=== PATIENT | female | born 1945 | race Caucasian/White ===

== ENCOUNTER 2021-11-11 10:29 | Outpatient (CLI) | payer MEDICARE, BC ==
[~2021-11-11 10:29] MED LIST: LOSA50TA39 PO; METF-440 PO; METF-442 PO; VIT C PO; VIT D3 PO; [UNRECOGNIZED DRUG - CODE] SQ
== END 2021-11-11 23:59 | disposition home or self-care (01) ==
LOC: RAD 10:29
PROVIDERS: ATTEND Internal Medicine Pulmonary Disease
DX: I70.0 Atherosclerosis of aorta (principal); R06.02 Shortness of breath
CPT/HCPCS: 71045-TC

== ENCOUNTER 2021-11-25 11:34 | Outpatient (CLI) | payer MEDICARE, BC ==
[2021-11-28 09:07] LABS: *AREA 13 IGE,TOTAL 14 IU/mL (6-495)
== END 2021-11-25 23:59 | disposition home or self-care (01) ==
LOC: LAB 11:34
PROVIDERS: ATTEND Internal Medicine Pulmonary Disease
DX: J45.909 Unspecified asthma, uncomplicated (principal); J32.9 Chronic sinusitis, unspecified
CPT/HCPCS: 70220-TC; 82785

== ENCOUNTER 2022-04-02 10:55 | Inpatient (IN) | payer MEDICARE, BC ==
[~2022-04-02] VITALS: Ht 162.6 cm; Wt 75.7 kg
[2022-04-02] MEDS ORDERED: PANTOPRAZOLE 40 MG VIAL ONE (11:08)
--- NOTE | 2022-04-02 11:20 | NUR ---
DR PARIS AT BEDSIDE FOR EVAL
[2022-04-02] MEDS ORDERED: PANTOPRAZOLE 40 MG VIAL IV ONE (11:30)
[2022-04-02] MEDS ORDERED: IV NS 0.9% 1,000 ML BAG IV ONE (11:30)
--- NOTE | 2022-04-02 11:30 | NUR ---
TATTOO TECHNICIAN AT BEDSIDE FOR XRAY
--- NOTE | 2022-04-02 11:40 | NUR ---
IV LINE ESTABLISHED ON RFA #20, BLOOD DRAWN AND SENT TO LAB
[2022-04-02 11:57] LABS: BASOPHILS # (AUTO) 0.1 K/uL (0.0-0.2); BASOPHILS % (AUTO) 0.6 % (0.0-2.0); EOSINOPHILS % (AUTO) 0.7 % (0.0-6.0); HEMATOCRIT 24 % (33-45); HEMOGLOBIN 7.9 g/dL (11.5-14.8); LYMPHOCYTES % (AUTO) 11.6 % (20.0-44.0); MEAN CORPUSCULAR HGB CONC 33 g/dl (31.0-36.0); MEAN CORPUSCULAR VOLUME 87 fL (82-100); MONOCYTES # (AUTO) 0.3 K/uL (0.1-1.30); MONOCYTES % (AUTO) 3.9 % (2.0-12.0); NEUTROPHILS # (AUTO) 7.4 K/uL (1.8-8.9); NEUTROPHILS % (AUTO) 83.2 % (43.0-81.0); PLATELET COUNT (AUTO) 197 K/uL (150-450); RED BLOOD CELL COUNT(AUTO) 2.76 MIL/uL (4.0-5.2); WHITE BLOOD COUNT (AUTO) 8.9 K/uL (4.3-11.0)
[2022-04-02 12:11] LABS: CARBON DIOXIDE 26 mmol/L (21-32); CHLORIDE 103 mmol/L (98-107); CREATININE 1.1 mg/dL (0.6-1.3); GLUCOSE 177 mg/dL (74-106); POTASSIUM 4.5 mmol/L (3.5-5.1); SODIUM SERUM 138 mmol/L (136-145); UREA NITROGEN, BLOOD 27 mg/dL (7-18)
[2022-04-02 12:18] LABS: ALANINE AMINOTRANSFERASE 22 U/L (12-78); ALBUMIN 3.5 g/dL (3.4-5.0); ALKALINE PHOSPHATASE 65 U/L (46-116); ASPARTATE AMINOTRANSFERASE 29 U/L (15-37); BILIRUBIN,DIRECT 0.2 mg/dL (0.0-0.2); BILIRUBIN,TOTAL 0.5 mg/dL (0.2-1.0); LIPASE 106 U/L (73-393); TOTAL PROTEIN, SERUM 7.3 g/dL (6.4-8.2)
[2022-04-02] MEDS ORDERED: IOHEXOL-350 100 ML VIAL IV ONE (12:34)
[2022-04-02] MEDS ORDERED: IV NS 0.9% 250 ML IV ONE (12:34)
--- NOTE | 2022-04-02 12:37 | NUR ---
PT TAKEN TO RADIOLOGY FOR CT
--- NOTE | 2022-04-02 12:48 | NUR ---
PT RETURNED FROM RADIOLOGY
--- NOTE | 2022-04-02 13:16 | NUR ---
[facility] CALLED INSTALLATIONS INSPECTOR PAGED.
--- NOTE | 2022-04-02 13:32 | NUR ---
COVID SWAB COLLECTED AND SENT TO LAB
[2022-04-02] MEDS ORDERED: OLME20TA23 PO (13:55)
[2022-04-02] MEDS ORDERED: ASPI-1420 PO (13:55)
[2022-04-02] MEDS ORDERED: ALBU18HF2 IH (13:55)
[2022-04-02] MEDS ORDERED: ATOR40TA PO (13:55)
[2022-04-02] MEDS ORDERED: MAG HYDROX/AL HYDROX/SIMETH 30 ML UDC PO PRN (14:30)
[2022-04-02] MEDS ORDERED: IV NS 0.9% 1,000 ML IV PRN (14:30)
[2022-04-02] MEDS ORDERED: ONDANSETRON HCL/PF 4 MG/2 ML VIAL IVP PRN (14:30)
[2022-04-02] MEDS ORDERED: ACETAMINOPHEN 325 MG TABLET PO PRN (14:30)
[2022-04-02] MEDS ORDERED: MAGNESIUM HYDROXIDE 30 ML UDC PO PRN (14:30)
[2022-04-02] MEDS ORDERED: Z GUARD REMEDY 4 OZ OINT TP PRN (14:30)
--- NOTE | 2022-04-02 14:37 | NUR ---
ROOM 103.
--- NOTE | 2022-04-02 14:46 | NUR ---
DORA AGUIRRE ASSIGNED, WILL CALL BACK FOR REPORT
--- NOTE | 2022-04-02 14:54 | NUR ---
REPORT GIVEN TO CARLA JOHN FOR SELAM
--- NOTE | 2022-04-02 15:46 | NUR ---
PT TRANSFERRED TO 103 VIA CORRINE GUILLERMO PROTOCOL. WARM HANDOFF GIVEN TO DORA AGUIRRE.
--- NOTE | 2022-04-02 15:50 | NUR ---
RN OPENING NOTES RECEIVED PATIENT FROM ER. ON ROOM AIR WITH NO SIGNS OF DISTRESS. ALERT AND ORIENTED TIMES 4. ATTACHED TO TELE MONITOR READING NORMAL SINUS RYTHYM. SKIN INTACT. IV ACCESS ON RIGHT FOREARM 20 GAUGE. SAFETY MEASURES IMPLEMENTED. WILL CONTINUE PLAN OF CARE AND ANTICIPATE NEEDS.
[2022-04-02 16:00] VITALS: BP 125/65
--- NOTE | 2022-04-02 19:00 | NUR ---
RN CLOSING NOTES PATIENT REMAINS IN ROOM. ON ROOM AIR WITH NO SIGNS OF DISTRESS. ALERT AND ORIENTED TIMES 4. ATTACHED TO TELE MONITOR READING NORMAL SINUS RYTHYM. SKIN INTACT. IV ACCESS ON RIGHT FOREARM 20 GAUGE. SAFETY MEASURES IMPLEMENTED. WILL ENDORSE TO NIGHTSHIFT FOR CONTINUATION OF CARE.
[2022-04-02] MEDS ORDERED: ANESTHESIA TRAY IN PYXIS 1 EA TRAY MC ONE (19:19)
--- NOTE | 2022-04-02 19:27 | NUR ---
RN NOTE PATIENT TAKEN TO EGD.
--- NOTE | 2022-04-02 20:04 | NUR ---
RN/PACU-RECEIVED PT. FROM GI LAB S/P EGD W/ DIAGNOSIS ANEMIA,MILD ESOPHAGITIS, PT. ACCOMPANIED BY ANESTHESIA DR. JOHNSON AND OR CREW. PT. AWAKE, ALERT, ORIENTEDX4, EXPRESSIVE OF NEEDS, BREATHING COMES EASY, ON 2L NC, SATS.-100%, EKG SR W/ OCCASIONAL UNIFOCAL PVC, W/ HR-78, BP-125/66, DENIES PAIN OR DISCOMFORT. ANTONIO SCORE 10/10. AFEBRILE TEMPT-98.4/0. WILL CONTINUE TO MONITOR CLOSELY PER PROTOCOL.
[2022-04-02 20:05] VITALS: BP 125/66
--- NOTE | 2022-04-02 20:15 | NUR ---
RN/PACU-PT. ON REGULAR DIET, ASKING FOR JUICE. I CUP OF MILK SERVED, TOLERATED WELL.
[2022-04-02 20:27] VITALS: BP 120/58
[2022-04-02 20:30] VITALS: BP 107/54
--- NOTE | 2022-04-02 20:38 | NUR ---
RN/PACU-PT. REMAINS STABLE. TRANSFERRED TO ROOM 103 PER PROTOCOL BY BED. BEDSIDE REPORT GIVEN TO DORA GRIER. PT. DESIROUS TO GO HOME, FAMILY MEMBER AT BEDSIDE.
[2022-04-02] MEDS: SUCRALFATE 1 G/10 ML UDC GT SCH (21:06)
[2022-04-03] VITALS (7 sets, daily range): BP systolic 101–127; BP diastolic 39–68
[2022-04-03 06:33] LABS: BASOPHILS % (AUTO) 0.7 % (0.0-2.0); EOSINOPHILS % (AUTO) 2.8 % (0.0-6.0); HEMATOCRIT 21 % (33-45); HEMOGLOBIN 7.1 g/dL (11.5-14.8); LYMPHOCYTES # (AUTO) 1.4 K/uL (0.8-4.8); LYMPHOCYTES % (AUTO) 23.6 % (20.0-44.0); MEAN CORPUSCULAR HGB CONC 33 g/dl (31.0-36.0); MEAN CORPUSCULAR VOLUME 87 fL (82-100); MONOCYTES # (AUTO) 0.4 K/uL (0.1-1.30); MONOCYTES % (AUTO) 6.2 % (2.0-12.0); NEUTROPHILS # (AUTO) 3.9 K/uL (1.8-8.9); NEUTROPHILS % (AUTO) 66.7 % (43.0-81.0); PLATELET COUNT (AUTO) 171 K/uL (150-450); RED BLOOD CELL COUNT(AUTO) 2.45 MIL/uL (4.0-5.2); WHITE BLOOD COUNT (AUTO) 5.9 K/uL (4.3-11.0)
[2022-04-03 07:14] LABS: CALCIUM, SERUM 8.5 mg/dL (8.5-10.1); PHOSPHORUS 3.8 mg/dL (2.5-4.9); POTASSIUM 4.3 mmol/L (3.5-5.1)
--- NOTE | 2022-04-03 07:20 | NUR ---
RN CLOSING NOTE PATIENT RETURNED FROM EGD. CARAFATE GIVEN ORDERED. PATIENT EDUCATED. DAUGHTER AND AT BEDSIDE. PROVIDED WITH GI MD OFFICE NUMBER FOR FURTHER QUESTIONS. A/OX4. ROOM AIR. SINUS RHYTHM ON THE MONITOR. NO C/O PAIN. NO S/S BLEEDING. RFA NS@75. POSSIBLE DC THIS AM.
--- NOTE | 2022-04-03 07:25 | NUR ---
RN OPENING NOTE PATIENT IN BED RESTING. A/OX4. ROOM AIR. SINUS RHYTHM ON THE MONITOR. NO C/O PAIN. NO S/S BLEEDING. RFA NS@75. POSSIBLE DC THIS AM. SAFETY MEASURES IMPLEMENTED, WILL CONTINUE PLAN OF CARE AND ANTICIPATE NEEDS.
[2022-04-03] MEDS: SUCRALFATE 1 G/10 ML UDC GT SCH ×2 (08:03→11:42)
[2022-04-03] MEDS ORDERED: PANTOPRAZOLE 40 MG VIAL IV SCH (09:00)
[2022-04-03] MEDS ORDERED: SUCR1TAB31 PO (11:21)
[2022-04-03] MEDS ORDERED: OMEP40CA21 PO (11:21)
[2022-04-03 13:15] LABS: LYMPHOCYTES % (MANUAL) 17 % (16-48); MONOCYTES % (MANUAL) 4 % (0-11.0); NEUTROPHILS % (MANUAL) 79 (42-76)
--- NOTE | 2022-04-03 15:23 | NUR ---
BLOOD TRANSFUSION HAS CONCLUDED. VITAL SIGNS POST TRANSFUSION ARE FOLLOWS BLOOD PRESSURE: 134/47 SPO2: 97% PULSE 90 BEATS PER MINUTE TEMPERATURE 98.9 RESPIRATORY RATE 18 BREATHS PER MINUTE NO COMPLAINTS OF PAIN.
--- NOTE | 2022-04-03 15:59 | NUR ---
PATIENT HAS BEEN DISCHARGED HOME. DISCHARGE INSTRUCTIONS AND BELONGINGS LIST SIGNED. PATIENT VERBALIZED UNDERSTANDING OF DISCHARGE TEACHING. ID BAND REMOVED AND IV ACCESS DISCONTINUED. PATIENT WAS WHEELED TO FRONT LOBBY WHERE SHE WAS PICKED UP BY HER FAMILY MEMBER. PATIENT LEFT FACILITY VIA PRIVATE VEHICLE IN STABLE CONDITION.
== END 2022-04-03 16:03 | disposition home or self-care (01) | DRG 368 ==
LOC: ER 10:58 → TELE1 14:54
PROVIDERS: ADMIT Internal Medicine; ATTEND Internal Medicine
PROC: 0DB68ZX Excision of Stomach, Via Natural or Artificial Opening Endoscopic, Diagnostic (ICD-10-PCS; principal; 2022-04-02)
PROC: 30233N1 Transfusion of Nonautologous Red Blood Cells into Peripheral Vein, Percutaneous Approach (ICD-10-PCS; 2022-04-03)
DX: K21.01 Gastro-esophageal reflux disease with esophagitis, with bleeding (principal); K29.71 Gastritis, unspecified, with bleeding; D62 Acute posthemorrhagic anemia; I10 Essential (primary) hypertension; J45.909 Unspecified asthma, uncomplicated; Z20.822 Contact with and (suspected) exposure to COVID-19; E78.5 Hyperlipidemia, unspecified; Z95.2 Presence of prosthetic heart valve; E11.9 Type 2 diabetes mellitus without complications; Z98.84 Bariatric surgery status
CPT/HCPCS: 36415; 80048-TC; 80076-TC; 83605-TC; 83690-TC; 83735-TC; 84100-TC; 85025-TC; 85730-TC; 86850-TC; 87081-TC; C9113; C9803; G0378; J2704; J3490; J7030; J7050; P9016; Q9967

== ENCOUNTER 2023-11-03 11:17 | Inpatient (IN) | payer BC, MEDICARE ==
[~2023-11-03] VITALS: Ht 162.6 cm; Wt 80.5 kg
[~2023-11-03 11:17] MED LIST changes: +ALBU18HF2 IH; +ASPI-1420 PO; +ATOR40TA PO; -LOSA50TA39 PO; -METF-440 PO; -METF-442 PO; +OLME20TA23 PO; +OMEP40CA21 PO; +SUCR1TAB31 PO; -VIT C PO; -VIT D3 PO; -[UNRECOGNIZED DRUG - CODE] SQ
[2023-11-03] MEDS ORDERED: ONDANSETRON HCL/PF 4 MG/2 ML VIAL ONE (12:56)
[2023-11-03 13:04] LABS: BASOPHILS % (AUTO) 0.5 % (0.0-2.0); EOSINOPHILS # (AUTO) 0.2 K/uL (0.0-0.7); EOSINOPHILS % (AUTO) 2.6 % (0.0-6.0); HEMATOCRIT 31 % (33-45); LYMPHOCYTES # (AUTO) 1.1 K/uL (0.8-4.8); LYMPHOCYTES % (AUTO) 13.7 % (20.0-44.0); MEAN CORPUSCULAR HEMOGLOBIN 28 PG (26.0-33.0); MEAN CORPUSCULAR HGB CONC 33 g/dl (31.0-36.0); MEAN CORPUSCULAR VOLUME 86 fL (82-100); MONOCYTES # (AUTO) 0.4 K/uL (0.1-1.30); MONOCYTES % (AUTO) 4.7 % (2.0-12.0); NEUTROPHILS # (AUTO) 6.2 K/uL (1.8-8.9); NEUTROPHILS % (AUTO) 78.5 % (43.0-81.0); PLATELET COUNT (AUTO) 261 K/uL (150-450); RED BLOOD CELL COUNT(AUTO) 3.58 MIL/uL (4.0-5.2); RED CELL DISTRIBUTION WIDTH 16.1 % (11.5-15.0); WHITE BLOOD COUNT (AUTO) 7.9 K/uL (4.3-11.0)
[2023-11-03] MEDS: IV NS 0.9% 1,000 ML BAG IV ONE (13:05)
[2023-11-03] MEDS: ONDANSETRON HCL/PF 4 MG/2 ML VIAL IVP ONE (13:06)
[2023-11-03 13:12] LABS: CALCIUM, SERUM 8.7 mg/dL (8.5-10.1); CARBON DIOXIDE 21 mmol/L (21-32); CHLORIDE 107 mmol/L (98-107); CREATININE 3.3 mg/dL (0.6-1.3); GLUCOSE 127 mg/dL (74-106); POTASSIUM 4.2 mmol/L (3.5-5.1); SODIUM SERUM 138 mmol/L (136-145); UREA NITROGEN, BLOOD 46 mg/dL (7-18)
[2023-11-03 13:18] LABS: ALANINE AMINOTRANSFERASE 21 U/L (12-78); ALBUMIN 3.2 g/dL (3.4-5.0); ALKALINE PHOSPHATASE 88 U/L (46-116); ASPARTATE AMINOTRANSFERASE 18 U/L (15-37); BILIRUBIN,DIRECT 0.1 mg/dL (0.0-0.2); BILIRUBIN,TOTAL 0.3 mg/dL (0.2-1.0); LIPASE 78 U/L (16-77); TOTAL PROTEIN, SERUM 7.6 g/dL (6.4-8.2)
[2023-11-03] MEDS ORDERED: DIATR MEGLU/DIATRIZOATE SODIUM 120 ML BOTTLE (GASTROGRAPHIN) ONE (14:04)
[2023-11-03] MEDS ORDERED: IBUP-1955 PO (15:05)
[2023-11-03] MEDS ORDERED: ONDANSETRON HCL/PF 4 MG/2 ML VIAL IVP PRN (17:00)
[2023-11-03] MEDS: IV NS 0.9% 1,000 ML IV PRN (17:25)
[2023-11-03 17:51] LABS: APPEARANCE,URINE CLEAR (CLEAR); BILIRUBIN,URINE NEGATIVE (NEGATIVE); BLOOD, URINE NEGATIVE Ery/uL (NEGATIVE); COLOR,URINE YELLOW (YELLOW); KETONES,URINE TRACE mg/dL (NEGATIVE); LEUKOCYTE ESTERASE ,URINE NEGATIVE (NEGATIVE); NITRITE, URINE NEGATIVE (NEGATIVE); PROTEIN,URINE 1+ mg/dl (NEGATIVE); UGLUCOSE NEGATIVE (NEGATIVE); UROBILINOGEN,URINE 0.2 EU/dL (0.2)
[2023-11-03 18:11] LABS: RBC,URINE NONE SEEN /HPF (0-2)
[2023-11-03 18:12] LABS: ADD URINE CULTURE YES; BACTERIA,URINE 2+ /HPF (None Seen)
[2023-11-03] MEDS: ACETAMINOPHEN 325 MG TABLET PO PRN (18:22)
[2023-11-03] MEDS: HEPARIN SODIUM, PORCINE 5000 UNITS/1 ML VIAL SQ SCH (21:24)
[2023-11-04 06:49] LABS: BASOPHILS % (AUTO) 0.5 % (0.0-2.0); EOSINOPHILS # (AUTO) 0.3 K/uL (0.0-0.7); EOSINOPHILS % (AUTO) 3.9 % (0.0-6.0); HEMATOCRIT 25 % (33-45); HEMOGLOBIN 8.5 g/dL (11.5-14.8); LYMPHOCYTES # (AUTO) 1.4 K/uL (0.8-4.8); LYMPHOCYTES % (AUTO) 20.4 % (20.0-44.0); MEAN CORPUSCULAR HEMOGLOBIN 29 PG (26.0-33.0); MEAN CORPUSCULAR HGB CONC 34 g/dl (31.0-36.0); MEAN CORPUSCULAR VOLUME 87 fL (82-100); MONOCYTES # (AUTO) 0.5 K/uL (0.1-1.30); MONOCYTES % (AUTO) 7.2 % (2.0-12.0); NEUTROPHILS # (AUTO) 4.6 K/uL (1.8-8.9); PLATELET COUNT (AUTO) 238 K/uL (150-450); RED BLOOD CELL COUNT(AUTO) 2.91 MIL/uL (4.0-5.2); RED CELL DISTRIBUTION WIDTH 15.8 % (11.5-15.0); WHITE BLOOD COUNT (AUTO) 6.7 K/uL (4.3-11.0)
[2023-11-04 07:28] LABS: ALANINE AMINOTRANSFERASE 18 U/L (12-78); ALBUMIN 2.3 g/dL (3.4-5.0); ALKALINE PHOSPHATASE 83 U/L (46-116); ASPARTATE AMINOTRANSFERASE 15 U/L (15-37); BILIRUBIN,TOTAL 0.3 mg/dL (0.2-1.0); CALCIUM, SERUM 7.7 mg/dL (8.5-10.1); CARBON DIOXIDE 19 mmol/L (21-32); CHLORIDE 114 mmol/L (98-107); CREATININE 2.7 mg/dL (0.6-1.3); GLUCOSE 109 mg/dL (74-106); MAGNESIUM 1.6 mg/dL (1.8-2.4); PHOSPHORUS 4.4 mg/dL (2.5-4.9); SODIUM SERUM 142 mmol/L (136-145); TOTAL PROTEIN, SERUM 6.1 g/dL (6.4-8.2); UREA NITROGEN, BLOOD 36 mg/dL (7-18)
[2023-11-04 08:00] VITALS: BP 154/80; TEMP 98.3; O2SAT 96
[2023-11-04] MEDS: LOSARTAN POTASSIUM 50 MG TABLET PO SCH (09:07)
[2023-11-04 12:00] VITALS: BP 141/68; TEMP 98; O2SAT 97
[2023-11-04 16:00] VITALS: BP 129/66; TEMP 97.6; O2SAT 97
[2023-11-04] MEDS: ATORVASTATIN 40 MG TABLET PO SCH (17:10)
[2023-11-04 19:14] LABS: CREATININE, URINE 92.6 MG/DL (30.0-125.0)
[2023-11-04 19:22] LABS: APPEARANCE,URINE CLEAR (CLEAR); BILIRUBIN,URINE NEGATIVE (NEGATIVE); BLOOD, URINE NEGATIVE Ery/uL (NEGATIVE); COLOR,URINE YELLOW (YELLOW); KETONES,URINE NEGATIVE (NEGATIVE); LEUKOCYTE ESTERASE ,URINE NEGATIVE (NEGATIVE); NITRITE, URINE NEGATIVE (NEGATIVE); PROTEIN,URINE TRACE mg/dl (NEGATIVE); UGLUCOSE NEGATIVE (NEGATIVE); UROBILINOGEN,URINE 0.2 EU/dL (0.2)
[2023-11-04 20:00] VITALS: BP 157/71; O2SAT 97
[2023-11-04 20:06] LABS: ADD URINE CULTURE NO; BACTERIA,URINE Few /HPF (None Seen); RBC,URINE 0-2 /HPF (0-2); WBC,URINE NONE SEEN /HPF (0-3)
[2023-11-04 20:07] LABS: SQUAMOUS EPITHELIAL CELL,UR Few /HPF (None Seen)
[2023-11-04 20:19] LABS: EOSINOPHIL,URINE None Seen
[2023-11-04] MEDS: MORPHINE SULFATE INJ 2 MG/ML DISP.SYRIN IV PRN (23:10)
[2023-11-05] VITALS: BP 160/70; TEMP 98.2; O2SAT 99
[2023-11-05 05:41] VITALS: BP 165/76; TEMP 98.4; O2SAT 99
[2023-11-05 06:41] LABS: BASOPHILS # (AUTO) 0.1 K/uL (0.0-0.2); BASOPHILS % (AUTO) 0.9 % (0.0-2.0); EOSINOPHILS # (AUTO) 0.3 K/uL (0.0-0.7); EOSINOPHILS % (AUTO) 4.2 % (0.0-6.0); HEMATOCRIT 26 % (33-45); HEMOGLOBIN 8.6 g/dL (11.5-14.8); LYMPHOCYTES # (AUTO) 1.6 K/uL (0.8-4.8); LYMPHOCYTES % (AUTO) 24.6 % (20.0-44.0); MEAN CORPUSCULAR HEMOGLOBIN 29 PG (26.0-33.0); MEAN CORPUSCULAR HGB CONC 33 g/dl (31.0-36.0); MEAN CORPUSCULAR VOLUME 87 fL (82-100); MONOCYTES # (AUTO) 0.5 K/uL (0.1-1.30); MONOCYTES % (AUTO) 7.5 % (2.0-12.0); NEUTROPHILS % (AUTO) 62.8 % (43.0-81.0); PLATELET COUNT (AUTO) 252 K/uL (150-450); RED BLOOD CELL COUNT(AUTO) 2.99 MIL/uL (4.0-5.2); RED CELL DISTRIBUTION WIDTH 15.6 % (11.5-15.0); WHITE BLOOD COUNT (AUTO) 6.3 K/uL (4.3-11.0)
[2023-11-05 06:49] LABS: ALANINE AMINOTRANSFERASE 16 U/L (12-78); ALBUMIN 2.3 g/dL (3.4-5.0); ALKALINE PHOSPHATASE 85 U/L (46-116); ASPARTATE AMINOTRANSFERASE 16 U/L (15-37); BILIRUBIN,TOTAL 0.3 mg/dL (0.2-1.0); CALCIUM, SERUM 7.9 mg/dL (8.5-10.1); CARBON DIOXIDE 21 mmol/L (21-32); CHLORIDE 115 mmol/L (98-107); CREATININE 2.3 mg/dL (0.6-1.3); GLUCOSE 112 mg/dL (74-106); MAGNESIUM 1.7 mg/dL (1.8-2.4); PHOSPHORUS 4.1 mg/dL (2.5-4.9); POTASSIUM 4.1 mmol/L (3.5-5.1); SODIUM SERUM 144 mmol/L (136-145); TOTAL PROTEIN, SERUM 6.2 g/dL (6.4-8.2); UREA NITROGEN, BLOOD 28 mg/dL (7-18)
[2023-11-05 06:59] LABS: CREATINE KINASE, TOTAL 24 U/L (26-192); FERRITIN 73 ng/mL (8-388)
[2023-11-05 07:02] LABS: IRON, SERUM 79 ug/dl (50-175); TOTAL IRON BINDING CAPACITY 254 ug/dl (250-450)
[2023-11-05 08:00] VITALS: BP 178/77; TEMP 98.1; O2SAT 94
[2023-11-05 08:34] VITALS: BP 178/77
[2023-11-05] MEDS ORDERED: MAGNESIUM OXIDE 400 MG TABLET PO ONE (10:30)
[2023-11-06 09:12] LABS: PTH, INTACT 114 pg/mL (15-65)
[2023-11-06 10:07] LABS: *SPE A/G RATIO 0.9 (0.7-1.7); *SPE ALBUMIN 2.7 g/dL (2.9-4.4); *SPE ALPHA-1-GLOBULIN 0.3 g/dL (0.0-0.4); *SPE ALPHA-2-GLOBULIN 0.6 g/dL (0.4-1.0); *SPE BETA GLOBULIN 0.9 g/dL (0.7-1.3); *SPE GLOBULIN, TOTAL 2.9 g/dL (2.2-3.9); *SPE M-SPIKE Not Observed g/dL (Not Observed); *SPE PROTEIN TOTAL 5.6 g/dL (6.0-8.5); *SPEGAMMA GLOBULIN 1.1 g/dL (0.4-1.8)
== END 2023-11-05 11:33 | disposition home or self-care (01) | DRG 641 ==
LOC: ER 11:21 → TELE1 15:52
PROVIDERS: ADMIT Internal Medicine; ATTEND Internal Medicine
DX: E86.0 Dehydration (principal); N17.9 Acute kidney failure, unspecified; W01.0XXA Fall on same level from slipping, tripping and stumbling without subsequent striking against object, initial encounter; E11.9 Type 2 diabetes mellitus without complications; I10 Essential (primary) hypertension; W19.XXXA Unspecified fall, initial encounter; Y92.9 Unspecified place or not applicable; R07.81 Pleurodynia; Z95.2 Presence of prosthetic heart valve; Z90.49 Acquired absence of other specified parts of digestive tract; Z98.84 Bariatric surgery status; Z79.899 Other long term (current) drug therapy; S09.93XA Unspecified injury of face, initial encounter; E78.5 Hyperlipidemia, unspecified; T39.395A Adverse effect of other nonsteroidal anti-inflammatory drugs [NSAID], initial encounter; D64.9 Anemia, unspecified; K52.9 Noninfective gastroenteritis and colitis, unspecified
CPT/HCPCS: 36415; 70450-TC; 70486-TC; 71100-TC; 73060-TC; 80048-TC; 80053-TC; 80076-TC; 81001; 82550-TC; 82570-TC; 82607-TC; 82728-TC; 83540-TC; 83605-TC; 83690-TC; 83735-TC; 83970; 84100-TC; 84155; 84165; 84300-TC; 84484-TC; 85025-TC; 87086-TC; A4223; G0378; J1644; J2270; J2405; J3490; J7030; Q9963

== ENCOUNTER 2024-09-27 10:30 | Emergency (ER) | payer MEDICARE, BC ==
[~2024-09-27] VITALS: Ht 162.6 cm; Wt 74.8 kg
[~2024-09-27 10:30] MED LIST changes: -ALBU18HF2 IH; -ASPI-1420 PO; +IBUP-1955 PO; -OMEP40CA21 PO; -SUCR1TAB31 PO
[2024-09-27] MEDS ORDERED: MAG HYDROX/AL HYDROX/SIMETH 30 ML UDC ONE (11:04)
[2024-09-27] MEDS ORDERED: ONDANSETRON HCL/PF 4 MG/2 ML VIAL ONE (11:04)
[2024-09-27] MEDS ORDERED: MORPHINE SULFATE INJ 2 MG/ML DISP.SYRIN ONE (11:04)
[2024-09-27] MEDS ORDERED: FAMOTIDINE/PF INJ 20 MG/2 ML VIAL IV ONE (11:05)
[2024-09-27 11:20] LABS: BASOPHILS % (AUTO) 0.5 % (0.0-2.0); EOSINOPHILS # (AUTO) 0.2 K/uL (0.0-0.7); EOSINOPHILS % (AUTO) 1.5 % (0.0-6.0); HEMATOCRIT 29 % (33-45); HEMOGLOBIN 9.7 g/dL (11.5-14.8); LYMPHOCYTES # (AUTO) 1.3 K/uL (0.8-4.8); LYMPHOCYTES % (AUTO) 12.5 % (20.0-44.0); MEAN CORPUSCULAR HEMOGLOBIN 29 PG (26.0-33.0); MEAN CORPUSCULAR HGB CONC 33 g/dl (31.0-36.0); MEAN CORPUSCULAR VOLUME 88 fL (82-100); MONOCYTES # (AUTO) 0.6 K/uL (0.1-1.30); MONOCYTES % (AUTO) 5.3 % (2.0-12.0); NEUTROPHILS # (AUTO) 8.4 K/uL (1.8-8.9); NEUTROPHILS % (AUTO) 80.2 % (43.0-81.0); PLATELET COUNT (AUTO) 376 K/uL (150-450); RED CELL DISTRIBUTION WIDTH 14.8 % (11.5-15.0); WHITE BLOOD COUNT (AUTO) 10.4 K/uL (4.3-11.0)
[2024-09-27] MEDS: IV NS 0.9% 500 ML BAG IV ONE (11:27)
[2024-09-27 11:28] LABS: CALCIUM, SERUM 9.3 mg/dL (8.5-10.1); CREATININE 1.4 mg/dL (0.6-1.3); POTASSIUM 4.1 mmol/L (3.5-5.1)
[2024-09-27] MEDS: ONDANSETRON HCL/PF 4 MG/2 ML VIAL IVP ONE (11:28)
[2024-09-27] MEDS: FAMOTIDINE/PF INJ 20 MG/2 ML VIAL IV ONE (11:29)
[2024-09-27] MEDS: MORPHINE SULFATE INJ 2 MG/ML DISP.SYRIN IV ONE (11:30)
[2024-09-27] MEDS: MAG HYDROX/AL HYDROX/SIMETH 30 ML UDC PO ONE (11:31)
[2024-09-27 11:34] LABS: ALBUMIN 2.9 g/dL (3.4-5.0); BILIRUBIN,DIRECT 0.1 mg/dL (0.0-0.2); BILIRUBIN,TOTAL 0.4 mg/dL (0.2-1.0); TOTAL PROTEIN, SERUM 7.4 g/dL (6.4-8.2)
[2024-09-27 15:13] VITALS: BP 153/71; TEMP 98.3; O2SAT 97
== END 2024-09-27 15:13 | disposition home or self-care (01) ==
LOC: ER 11:20
DX: R10.13 Epigastric pain (principal); G89.29 Other chronic pain; I10 Essential (primary) hypertension; E11.9 Type 2 diabetes mellitus without complications; Z90.49 Acquired absence of other specified parts of digestive tract; Z95.2 Presence of prosthetic heart valve; Z98.84 Bariatric surgery status; Z79.899 Other long term (current) drug therapy
CPT/HCPCS: 99285; 74176; 96374; 96375; 93005; 85025; 80048; 83690; 80076; 36415; J3490; J2405; J7040; J2270